=== PATIENT | female | born 1950 | race Caucasian/White ===

== ENCOUNTER 2023-10-23 13:10 | Emergency (ER) | payer MEDICARE, SELFPAY ==
--- NOTE | 2023-10-23 13:13 | ED.SKABFB ---
HPI - Skin/Abscess/Foreign Bdy General Chief complaint: Skin/Abscess/Foreign Body Stated complaint: Rash Time Seen by Provider: 10/23/23 13:13 Source: patient Mode of arrival: ambulatory Limitations: no limitations History of Present Illness HPI narrative: Lisa is a 73-year-old female patient presenting to the clinic today with complaints of a itchy red rash that is spreading. She reports the rash started on her neck on Wednesday and is now spreading to her chest and face. She denies any fever, chills, or body aches. No environmental changes. States she had a similar rash last year when and got hot/humid outside. Related Data Allergies Allergy/AdvReac Type Severity Reaction Status Date / Time No Known Allergies Allergy Mild Verified 10/23/23 13:31 Review of Systems Review of Systems: Pertinent positives per HPI. Patient denies any fever, chills, headache, visual changes, dizziness, cough, runny nose, sore throat, shortness of breath, chest pain, palpitations, nausea, vomiting, diarrhea, constipation, abdominal pain, or any urinary issues. PMFSH Comments At the time of my signature, I reviewed and agree with the nursing past medical, surgical, social, and family history. There is no relevant family history pertinent to the patient complaint. Exam Narrative: General: Well-developed, well nourished, in no apparent distress Head: Normocephalic, atraumatic. Cardio: Regular rate and rhythm, s1 and s2 normal, no murmur appreciated. Resp: Clear to auscultation bilaterally, no rhonchi, rales, wheezing or rubs. Integumentary: Eagle, warm, and dry, intact without lesion, red, raised, scaly, mild erythemic rash to the neck, face, and chest wall Course Course Emergency Course: Portions of this record may have been created with voice recognition software. Level of Care: Express Care Visit Vital Signs Vital signs: Vital Signs Temperature 37.2 C 10/23/23 13:27 Pulse Rate 92 10/23/23 13:27 Respiratory Rate 18 10/23/23 13:27 Blood Pressure 187/91 H 10/23/23 13:27 Pulse Oximetry 100 10/23/23 13:27 Oxygen Delivery Room Air 10/23/23 13:27 Temperature 37.2 C 10/23/23 13:27 Pulse Rate 92 10/23/23 13:27 Respiratory Rate 18 10/23/23 13:27 Blood Pressure 187/91 H 10/23/23 13:27 Pulse Oximetry 100 10/23/23 13:27 Oxygen Delivery Room Air 10/23/23 13:27 Vital signs reviewed MDM - Skin/Abscess/Foreign Bdy MDM Narrative Medical decision making narrative: At the time of visit patient is resting comfortably on the exam table. Patient appears to be nontoxic. Plan: I suspect patient has dermatitis. Prescription for triamcinolone cream and prednisone was sent to pharmacy. Supportive measures were discussed with the patient and they voiced understanding discharge instructions and agrees to treatment plan. Return precautions reviewed Differential Diagnosis Differential diagnosis: Likely abscess of skin or subcutaneous tissue, viral exanthem, urticaria, herpes zoster, allergic reaction to drug, cellulitis, eczema, insect bites, impetigo and contact dermatitis Discharge Plan Discharge Clinical Impression: Dermatitis Patient Disposition: Home, Self-Care Condition: Stable Instructions: Antibiotic Form, Dermatitis (ED) Additional Instructions: Apply triamcinolone cream as directed Take prednisone as directed Avoid hot showers Moisturize skin twice a day using Cetaphil, Lubriderm, or Aquaphor lotion Avoid scratching and this can cause a secondary infection May take benadryl 25-50mg every 6 hours as needed for itching. Follow up with your PCP in 3-5 days if symptoms persist or sooner if they worsen Go to the Emergency Room if symptoms worsen- fever, rash spreading with treatment, shortness of breath, tongue swelling, drooling, or chest pain Prescriptions: New prednisone 10 mg tablet 10 mg PO DAILY Qty: 30 0RF Rx Instructions: 60mg po daily on day
[2023-10-23 13:27] VITALS: BP 187/91; PULSE 92; RESP 18; TEMP 37.2; O2SAT 100
== END 2023-10-23 13:38 | disposition home or self-care (01) ==
PROVIDERS: Emergency Provider Nurse Practitioner Family; PCP Nurse Practitioner
DX: L30.9 Dermatitis, unspecified (principal)
CPT/HCPCS: 99213; G0463